=== PATIENT | male | born 1960 | race Caucasian/White ===

== ENCOUNTER 2018-08-22 01:46 | Emergency (ER) | payer OTHER ==
--- OUTSIDE RECORDS SUMMARY | 2018-08-22 01:48 | XMS REPORT | Clinical Summary ---
:1960 Author Organization [facility] Address [address] [place] [address] Care Team Providers Name Role Phone Unavailable Primary Care Provider Unavailable Allergies No Known Allergies Medications Medication Sig Dispensed Refills Start Date End Date Status lancets Misc Use three times 50 each 3 06/03/2016 Active weekly to check blood sugar. blood sugar 1 strip by 100 strip 3 06/03/2016 Active diagnostic (GLUCOSE Miscellaneous route 3 BLOOD) Strp (three) times a week. Active Problems Problem Noted Date Acute ischemic left MCA stroke 05/28/2016 Global aphasia 05/28/2016 Seizure 05/27/2016 Social History Tobacco Use Types Packs/Day Years Used Date Never Smoker Smokeless Tobacco: Never Used Alcohol Use Drinks/Week oz/Week Comments No Sex Assigned at Date Recorded Not on file Job Start Date Occupation Industry Not on file Not on file Not on file Travel History Travel Start Travel End No recent travel history available. Last Filed Vital Signs Not on file Plan of Treatment Not on file Results Not on fileafter 08/21/2017 Insurance Payer Benefit Plan / Group Subscriber ID Type Phone Address MEDICARE MEDICARE A B xxxxxxxxxxx Medicare Advance Directives For more information, please contact:[facility] [place] [address] [phone] Code Status Date Activated Date Inactivated Comments Full Code 06/03/2016 9:04 AM 06/03/2016 9:53 AM This code status was determined by: Other (please list) Brother Full Code 06/02/2016 2:35 PM 06/02/2016 3:02 PM This code status was determined by: Patient Full Code 05/27/2016 12:01 PM 06/02/2016 2:35 PM This code status was determined by: Patient
[2018-08-22 02:26] LABS: Absolute Lymphocytes (CBC) 2.6 K/uL (0.7-4.9); Absolute Monocytes 0.8 K/uL (0.1-1.3); Absolute Neutrophil 5.5 K/uL (1.8-8.0); Basophils % 0.6 % (0-1.3); Eosinophils % 0.9 % (0-4.4); Hematocrit 48.5 % (39.6-49.0); Lymphocytes % 28.5 % (15.3-44.8); MPV 8.7 fL (7.6-11.3); Monocytes % 8.5 % (3.3-12.3); RBC Red Blood Cell Count 5.46 M/uL (4.33-5.43)
[2018-08-22 03:11] LABS: Protime INR 1.01
[2018-08-22 03:12] LABS: BUN Blood Urea Nitrogen 12 mg/dL (7-18); Bicarbonate 29 mmol/L (21-32); Glucose Level 105 mg/dL (74-106); Potassium 3.6 mmol/L (3.5-5.1); Sodium Level 143 mmol/L (136-145)
[2018-08-22 03:21] LABS: Troponin (Emerg Dept Use Only) < 0.02 ng/mL (0.0-0.045)
[2018-08-22 05:04] LABS: Urine Blood 2+ (NEG); Urine Glucose NEGATIVE (NEG); Urine Protein NEGATIVE (NEG); Urine Specific Gravity 1.025 (1.005-1.030)
--- NOTE | 2018-08-22 05:24 | ER ---
Nurse's Notes [facility] Name: Fabien Armendariz Age: 57 yrs Sex: Male : 1960 Arrival Date: 08/22/2018 Time: 01:52 Bed 14 Private MD: Diagnosis: Cerebrovascular disorders in diseases classified elsewhere;CVA Presentation: 08/22 01:55 Presenting complaint: EMS states: Brother reports that patient is typically able to lp1 walk on his own, tonight at 1800, patient was having trouble walking and had trouble getting out of bed; Patient has become progressively weak to right arm and right leg since then; hx of CVA 2 years ago. Transition of care: patient was not received from another setting of care. An acute neurological deficit is present. The charge nurse has been notified. The patients blood glucose was checked before arriving to the hospital and was found to be normal. Onset of symptoms was August 21, 2018 at 18:00. Risk Assessment: Do you want to hurt yourself or someone else? Patient reports no desire to harm self or others. Initial Sepsis Screen: Does the patient meet any 2 criteria? No. Patient's initial sepsis screen is negative. Does the patient have a suspected source of infection? No. Patient's initial sepsis screen is negative. Care prior to arrival: Glucose check: 92. 01:55 Method Of Arrival: EMS: [facility] lp1 01:55 Acuity: LEIDA 2 lp1 Historical: - Allergies: 01:58 No Known Allergies; lp1 - Home Meds: 02:18 levetiracetam 750 mg oral tab 1 tab 2 times per day [Active]; metformin 1,000 mg Oral lp1 tab 1 tab 2 times per day [Active]; losartan-hydrochlorothiazide 100-12.5 mg oral tab 1 tab once daily [Active]; - PMHx: 02:18 "Mentally delayed"; Hypertension; Diabetes - NIDDM; lp1 - Social history:: Smoking status: unknown. - Ebola Screening: : No symptoms or risks identified at this time. Screenin:59 Fall Risk Total Seaman Fall Scale indicates High Risk Score (45 or more points). Fall lp1 prevention measures have been instituted. Side Rails Up X 2 Placed Close to Nursing Station Family Present and informed to notify staff if the need to leave the bedside As available patient and family educated on Fall Prevention Program and Strategies. 02:00 Abuse screen: Denies threats or abuse. Nutritional screening: No deficits noted. jb4 Tuberculosis screening: No symptoms or risk factors identified. Assessment: 01:59 VAN Scoring: Arm Drift: Flaccid/no antigravity lp1 02:05 The patient has not been NPO before screening. The patient is alert, and able to follow jb4 commands. The patient does not exhibit slurred or garbled speech. The patient is not exhibiting difficulty speaking. The patient is exhibiting difficulty understanding words. unable to assess speech or understanding of words due to mental disability. The patient is able to swallow own secretions with no drooling or need for suction. Patient tolerated one teaspoon of water. No drooling, immediate coughing, gurgling, or clearing of the throat was noted. The patient tolerated 90mL of water. No drooling, immediate coughing, gurgling, or clearing of the throat was noted. The patient passed the bedside swallow screening. Oral medications may be given as ordered. Contact Physician for further diet orders. Provider notified of bedside swallow screening results: Bora Howell MD. T-PA (Activase) Screening:. General: Appears uncomfortable, obese, Behavior is calm, cooperative. Pain: Denies pain. Neuro: Level of Consciousness is awake, alert, obeys commands, Oriented to person. Cardiovascular: Heart tones S1 S2 present Patient's skin is warm and dry. Respiratory: Airway is patent Respiratory effort is even, unlabored, Respiratory pattern is regular, symmetrical, Breath sounds are clear bilaterally. GI: No signs and/or symptoms were reported involving the gastrointestinal system. : No signs and/or symptoms were reported regarding the genitourinary system. EENT: No signs and/or symptoms were reported regarding the EENT system. Derm: Skin is intact, Skin is pink, warm \\T\\ dry. Musculoskeletal: Range of motion: limited in all extremities. 02:05 Reassessment: unable to ass best gaze, visual musa,sensory, best language, jb4 dysarthria, or extinction/inattention neglect due to mental disability. 03:00 Reassessment: No changes from previously documented assessment. Patient and/or family jb4 updated on plan of care and expected duration. Pain level reassessed. Family is at the bedside. Pt is awake and alert, respirations even and unlabored, oriented to self. 03:57 Reassessment: Patient and/or family updated on plan of care and expected duration. Pain jb4 level reassessed. Pt has improved movement of the right arm and left leg. Pt is awake and alert, respirations even and unlabored, oriented to self. 04:44 Reassessment: No changes from previously documented assessment. Patient and/or family jb4 updated on plan of care and expected duration. Pain level reassessed. Attempted to call report to [facility], instructed to wait for call back. Respirations even and unlabored, awake and alert, oriented to self. 05:43 Reassessment: No changes from previously documented assessment. Patient and/or family jb4 updated on plan of care and expected duration. Pain level reassessed. Pt family is leaving, pt is resting in bed. Pt is awake and alert, respirations even and unlabored. oriented to self. Report called to Patricio at [facility]. 06:53 Reassessment: Patient and/or family updated on plan of care and expected duration. Pain jb4 level reassessed. Pt is awake and alert. oriented to self. Pt vomited x1, given 4mg of zofran per providers orders. Being transferred out by EMS to [facility]. Vital Signs: 01:52 BP 163 / 95; Pulse 70; Resp 16; Temp 98; Pulse Ox 98% on R/A; Weight 108.86 kg; lp1 03:00 BP 150 / 102; Pulse 78; Resp 16; Pulse Ox 97% on R/A; jb4 04:00 BP 134 / 95; Pulse 82; Resp 16; Pulse Ox 98% on R/A; jb4 04:44 BP 146 / 89; Pulse 84; Resp 16; Pulse Ox 100% on R/A; jb4 05:43 BP 133 / 93; Pulse 75; Resp 16; Pulse Ox 99% on R/A; jb4 06:45 BP 163 / 109; Pulse 86; Resp 20; Pulse Ox 97% on R/A; jb4 NIH Stroke Scale Scores: 02:05 NIHSS Score: 11 jb4 ED Course: 01:52 Patient arrived in ED. bb 01:53 Bora Howell MD is Attending Physician. tw4 01:[address] via stretcher. lp1 01:57 Triage completed. lp1 01:58 Arm band placed on. lp1 02:00 Patient has correct armband on for positive identification. Bed in low position. Call jb4 light in reach. Side rails up X2. monitor worker on. Pulse ox on. NIBP on. 02:12 Inserted saline lock: 20 gauge in right wrist, using aseptic technique. Blood collected.lp1 02:20 CT Stroke Brain w/o Contrast In Process Unspecified. EDMS 02:26 X-ray completed. Portable x-ray completed in exam room. Patient tolerated procedure kw well. 02:28 Stroke CXR 1 View In Process Unspecified. EDMS 02:55 Saúl Nina, RN is Primary Nurse. jb4 06:45 No provider procedures requiring assistance completed. Patient transferred, IV remains jb4 in place. Administered Medications: 06:50 Drug: Zofran 4 mg Route: IVP; Site: right hand; jb4 07:14 Follow up: Response: No adverse reaction; Medication administered at discharge. jb4 Point of Care Testing: Blood Glucose: 01:52 Blood Glucose: 80 mg/dL; lp1 06:45 Blood Glucose: 112 mg/dL; jb4 Ranges: Outcome: 05:23 ER care complete, transfer ordered by . tw4 06:45 Transferred by ground EMS to [facility]. jb4 06:45 Condition: stable 06:45 Discharge instructions given to family, EMS, Instructed on the need for transfer, Demonstrated understanding of instructions. 07:02 Patient left the ED. jb4 NIH Stroke Scale - NIH Stroke Score Date: 08/22/2018 Time: 02:05 Total Score = 11 1a. Level of Consciousness (LOC) - 0(Alert) 1b. Level of Consciousness (LOC) (Year \\T\\ Age) - 1(One) 1c. LOC Commands (Open \\T\\ Closes Eyes/Cra) - 0(Both) 2. Best Gaze (Lateral Gaze Paresis) - 0(Normal) 3. Visual Field Loss - 0(No visual loss) 4. Facial Palsy - 1(Minor Paralysis) 5a. Left Arm: Motor (10-second hold) - 0(No drift) 5b. Right Arm: Motor (10-second hold) - 3(No effort against gravity) 6a. Left Leg: Motor (5-second hold - always test supine) - 3(No effort against gravity) 6b. Right Leg: Motor (5-second hold - always test supine) - 3(No effort against gravity) 7. Limb Ataxia (finger/nose \\T\\ heel/bailey - test with eyes open) - 0(Absent) 8. Sensory Loss (pinprick arms/legs/face) - 0(Normal) 9. Best Language: Aphasia (description/naming/reading) - 0(No aphasia) 10. Dysarthria (speech clarity - read or repeat words) - 0(Normal) 11. Extinction and Inattention (visual/tactile/auditory/spatial/personal) - 0(No abnormality) Initials: jb4 Addendum: 08/25/2018 07:59 Addendum: Culture Results: Positive urine culture. Phone call Attempt #1 ss notified and faxed culture report to [facility]. Signatures: Dispatcher [employer] EDMS Yessi Bolanos RN RN bb Sonja Johnston RN RN Tyra Foote Laura, RN RN lp1 Saúl Nina RN RN jb4 Bora Howell MD MD tw4 Corrections: (The following items were deleted from the chart) 08/22 06:58 03:57 Reassessment: Patient and/or family updated on plan of care and expected jb4 duration. Pain level reassessed. Patient is alert, oriented x 3, equal unlabored respirations, skin warm/dry/pink. Pt has improved movement of the right arm and left leg. jb4 06:58 03:00 Reassessment: No changes from previously documented assessment. Patient jb4 and/or family updated on plan of care and expected duration. Pain level reassessed. Patient is alert, oriented x 3, equal unlabored respirations, skin warm/dry/pink. Family is at the bedside. jb4 06:58 04:44 Reassessment: No changes from previously documented assessment. Patient jb4 and/or family updated on plan of care and expected duration. Pain level reassessed. Patient is alert, oriented x 3, equal unlabored respirations, skin warm/dry/pink. Attempted to call report to [facility], instructed to wait for call back. jb4 06:58 05:43 Reassessment: No changes from previously documented assessment. Patient jb4 and/or family updated on plan of care and expected duration. Pain level reassessed. Patient is alert, oriented x 3, equal unlabored respirations, skin warm/dry/pink. Pt family is leaving, pt is resting in bed. jb4 07: 05:43 Reassessment: No changes from previously documented assessment. Patient jb4 and/or family updated on plan of care and expected duration. Pain level reassessed. Pt family is leaving, pt is resting in bed. Pt is awake and alert, respirations even and unlabored. oriented to self [facility] : 06:53 Reassessment: Patient and/or family updated on plan of care and expected jb4 duration. Pain level reassessed. Pt is awake and alert. oriented to self. Pt vomited x1, given 4mg of zofran per providers orders. Being transferred out by EMS to [place] [address]
--- NOTE | 2018-08-22 05:24 | EDPHYS ---
Physician Documentation [facility] Name: Fabien Armendariz Age: 57 yrs Sex: Male : 1960 Arrival Date: 08/22/2018 Time: 01:52 Bed 14 Private MD: ED Physician Bora Howell HPI: 08/22 02:20 This 57 yrs old Male presents to ER via EMS with complaints of S/S of tw4 Possible Stroke. 02:20 Onset: The symptoms/episode began/occurred yesterday. Duration: This was a single tw4 incident. Context: the episode(s) was witnessed, by no one. The symptoms are alleviated by nothing. The symptoms are aggravated by nothing. Severity of symptoms: At their worst the symptoms were moderate in the emergency department the symptoms are unchanged. The patient has not experienced similar symptoms in the past. 04:26 The patient's problem is reported as weakness, in the right upper extremity, in the tw4 right lower extremity, in the right side of face. Associated signs and symptoms: The patient has no apparent associated signs or symptoms. Patient's baseline: Neuro: alert and fully oriented, Motor: right-sided weakness, Ambulation: walks without assistance. Historical: - Allergies: 01:58 No Known Allergies; lp1 - Home Meds: 02:18 levetiracetam 750 mg oral tab 1 tab 2 times per day [Active]; metformin 1,000 mg Oral lp1 tab 1 tab 2 times per day [Active]; losartan-hydrochlorothiazide 100-12.5 mg oral tab 1 tab once daily [Active]; - PMHx: 02:18 "Mentally delayed"; Hypertension; Diabetes - NIDDM; lp1 - Social history:: Smoking status: unknown. - Ebola Screening: : No symptoms or risks identified at this time. ROS: 02:20 Constitutional: Negative for fever, chills, and weight loss, Eyes: Negative for injury, tw4 pain, redness, and discharge, Cardiovascular: Negative for chest pain, palpitations, and edema, Respiratory: Negative for shortness of breath, cough, wheezing, and pleuritic chest pain, Abdomen/GI: Negative for abdominal pain, nausea, vomiting, diarrhea, and constipation, Back: Negative for injury and pain, MS/Extremity: Negative for injury and deformity, Skin: Negative for injury, rash, and discoloration. 02:20 Neuro: Positive for weakness. Exam: 02:20 Constitutional: This is a well developed, well nourished patient who is awake, alert, tw4 and in no acute distress. Head/Face: Normocephalic, atraumatic. Chest/axilla: Normal chest wall appearance and motion. Nontender with no deformity. No lesions are appreciated. Cardiovascular: Regular rate and rhythm with a normal S1 and S2. No gallops, murmurs, or rubs. Normal PMI, no JVD. No pulse deficits. Respiratory: Lungs have equal breath sounds bilaterally, clear to auscultation and percussion. No rales, rhonchi or wheezes noted. No increased work of breathing, no retractions or nasal flaring. Abdomen/GI: Soft, non-tender, with normal bowel sounds. No distension or tympany. No guarding or rebound. No evidence of tenderness throughout. Back: No spinal tenderness. No costovertebral tenderness. Full range of motion. MS/ Extremity: Pulses equal, no cyanosis. Neurovascular intact. Full, normal range of motion. 02:20 Neuro: Orientation: to person, Mentation: lucid, able to follow commands, Memory: is normal, Motor: the patient is contracted, Sensation: is normal. 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 tw4 04:27 Differential diagnosis: CVA, TIA. Data reviewed: vital signs, nurses notes. Data interpreted: Pulse oximetry: is not applicable for this patient encounter. Counseling: I had a detailed discussion with the patient and/or guardian regarding: the historical points, exam findings, and any diagnostic results supporting the discharge/admit diagnosis, lab results. 08/22 01:58 Order name: Troponin (emerg Dept Use Only); Complete Time: 04:16 08/22 01:58 Order name: Basic Metabolic Panel; Complete Time: 03:36 08/22 03:37 Interpretation: Normal except: CL 108; GFR 73. 08/22 01:58 Order name: CBC with Diff; Complete Time: 03:36 08/22 03:36 Interpretation: Normal except: RBC 5.46; MCV 88.9. 08/22 01:58 Order name: Protime (+inr); Complete Time: 03:37 08/22 03:37 Interpretation: Within normal limits: PT 11.9. 08/22 01:58 Order name: Ptt, Activated; Complete Time: 03:37 08/22 03:37 Interpretation: Within normal limits: PTT 36.2. 08/22 04:51 Order name: Urine Culture 08/22 01:58 Order name: Call for Old EKG; Complete Time: 02:42 08/22 01:58 Order name: Call for Old Records; Complete Time: 02:42 08/22 01:58 Order name: CT Stroke Brain w/o Contrast 08/22 01:58 Order name: Stroke CXR 1 View 08/22 01:58 Order name: EKG; Complete Time: 01:58 08/22 04:51 Order name: Urine Microscopic Only 08/22 04:53 Order name: Urine Dipstick--Ancillary (enter results) 2 08/22 01:58 Order name: Accucheck; Complete Time: 02:58 08/22 01:58 Order name: Cardiac monitoring; Complete Time: 02:58 08/22 01:58 Order name: EKG - Nurse/Tech; Complete Time: 02:58 08/22 01:58 Order name: IV Saline Lock; Complete Time: 02:58 08/22 01:58 Order name: Labs collected and sent; Complete Time: 02:58 08/22 01:58 Order name: NPO; Complete Time: 02:58 08/22 01:58 Order name: O2 Per Protocol; Complete Time: 02:58 08/22 01:58 Order name: O2 Sat Monitoring; Complete Time: 02:58 08/22 01:58 Order name: Stroke Swallow Screen; Complete Time: 02:59 08/22 04:19 Order name: Urine Dipstick-Ancillary (obtain specimen); Complete Time: 04:44 bb EC:02 Rate is 98 beats/min. Rhythm is regular, 1st Degree Block. QRS [place] is Normal. [place] tw4 interval is normal. QRS interval is normal. QT interval is normal. No Q waves. T waves are Normal. No ST changes noted. Clinical impression: 1st degree heart block. Interpreted by me. Reviewed by me. Administered Medications: 06:50 Drug: Zofran 4 mg Route: IVP; Site: right hand; [facility] 07:14 Follow up: Response: No adverse reaction; Medication administered at discharge. jb4 Point of Care Testing: Blood Glucose: 01:52 Blood Glucose: 80 mg/dL; lp1 06:45 Blood Glucose: 112 mg/dL; jb4 Ranges: Critical Glucose Levels:Adult <50 mg/dl or >400 mg/dl <40 mg/dl or >180 mg/dl Disposition: 08/22/18 05:[address] [facility]. Diagnosis are Cerebrovascular disorders in diseases classified elsewhere, CVA. - Reason for transfer: Higher level of care. - Accepting physician is Dr Guo. - Condition is Stable. - Problem is new. - Symptoms have improved. NIH Stroke Scale - NIH Stroke Score Date: 08/22/2018 Time: 02:05 Total Score = 11 1a. Level of Consciousness (LOC) - 0(Alert) 1b. Level of Consciousness (LOC) (Year \\T\\ Age) - 1(One) 1c. LOC Commands (Open \\T\\ Closes Eyes/Teller) - 0(Both) 2. Best Gaze (Lateral Gaze Paresis) - 0(Normal) 3. Visual Field Loss - 0(No visual loss) 4. Facial Palsy - 1(Minor Paralysis) 5a. Left Arm: Motor (10-second hold) - 0(No drift) 5b. Right Arm: Motor (10-second hold) - 3(No effort against gravity) 6a. Left Leg: Motor (5-second hold - always test supine) - 3(No effort against gravity) 6b. Right Leg: Motor (5-second hold - always test supine) - 3(No effort against gravity) 7. Limb Ataxia (finger/nose \\T\\ heel/bailey - test with eyes open) - 0(Absent) 8. Sensory Loss (pinprick arms/legs/face) - 0(Normal) 9. Best Language: Aphasia (description/naming/reading) - 0(No aphasia) 10. Dysarthria (speech clarity - read or repeat words) - 0(Normal) 11. Extinction and Inattention (visual/tactile/auditory/spatial/personal) - 0(No abnormality) Initials: [facility] Signatures: Dispatcher [employer] EDYessi Cain, RN RN bb Tamiko Castelan RN RN lp1 Saúl Nina RN RN jb4 Bora Howell MD MD 4 Kendal Angel 2 Corrections: (The following items were deleted from the chart) 07:02 05:23 08/22/2018 05:23 Transfer ordered to [address] Diagnosis is Cerebrovascular disorders in diseases classified elsewhere; CVA. Reason for transfer: Higher level of care. Accepting physician is Dr Guo. Condition is Stable. Problem is new. Symptoms have improved. tw4
[2018-08-22 05:31] LABS: Urine Bacteria LOADED /HPF (NONE SEEN); Urine Culture Reflex Order NOT NEEDED; Urine Sperm PRESENT (NONE SEEN)
[2018-08-22] MEDS ORDERED: ONDANSETRON 4 MG/2 ML VIAL ONE (06:49)
--- NOTE | 2018-08-22 07:41 | EKG ---
Test Date: 2018-08-22 Test Time: 02:11:11 Saddle Lining Stitcher: MARLEY MEASUREMENT RESULTS: Intervals: Rate: 68 MN: 214 QRSD: 92 QT: 384 QTc: 408 [place]: P: 57 MN: 214 QRS: 29 T: 35 INTERPRETIVE STATEMENTS: Sinus rhythm with 1st degree AV block Otherwise normal ECG Compared to ECG 05/27/2016 07:25:21 First degree AV block now present Electronically Signed On 08-22-18 07:40:25 CDT by Christiano Guo
--- NOTE | 2018-08-22 08:36 | RAD REPORT ---
EXAM DESCRIPTION: Benjie Single View08/22/2018 2:28 am CLINICAL HISTORY: Hypertension COMPARISON: 2016 FINDINGS: The lungs appear clear of acute infiltrate. The heart is mildly enlarged IMPRESSION: No acute abnormalities displayed
--- NOTE | 2018-08-22 11:01 | RAD REPORT ---
EXAM DESCRIPTION: CT - Ct Stroke Brain Wo Cont - 08/22/2018 4:04 am CLINICAL HISTORY: The patient is 25 years old and is Male; EPIGASTRIC PAIN TECHNIQUE: Axial computed tomography images of the abdomen and pelvis with intravenous contrast. S agittal and coronal reformatted images were created and reviewed. This CT exam was performed using one or more of the following dose reduction techniques: automated exposure control, adjustment of t he mA and/or kV according to patient size, and/or use of iterative reconstruction technique. COMPARISON: None. FINDINGS: LUNG BASES: Unremarkable. No mass. No consolidation. ABDOMEN: LIVER: Unremarkable. No mass. GALLBLADDER AND BILE DUCTS: Unremarkable. No calcified stones. No ductal dilation. PANCREAS: Unremarkable. No mass. No ductal dilation. SPLEEN: Unremarkable. No splenomegaly. ADRENALS: Unremarkable. No mass. KIDNEYS AND URETERS: Unremarkable. No solid mass. No hydronephrosis. STOMACH AND BOWEL: Unremarkable. No obstruction. No mucosal thickening. PELVIS: APPENDIX: The appendix is seen and is within normal limits BLADDER: Unremarkable. No mass. REPRODUCTIVE: Unremarkable as visualized. ABDOMEN and PELVIS: INTRAPERITONEAL SPACE: Unremarkable. No free air. No significant fluid collection. BONES/JOINTS: No acute fracture. No dislocation. SOFT TISSUES: Unremarkable. VASCULATURE: Unremarkable. No abdominal aortic aneurysm. LYMPH NODES: Unremarkable. No enlarged lymph nodes. IMPRESSION: No acute abdominal or pelvic abnormality. Electronically signed by: Everette Long DO 08/22/2018 2:14 AM CDT \ Due to temporary technical issues with the PACS/Fluency reporting system, reports are being signed by the in house radiologist as a courtesy to ensure prompt reporting. The interpreting radiologist is f gosialy responsible for the content of the report.
== END 2018-08-22 07:02 | disposition short-term general hospital (02) ==
LOC: ER 01:46
DX: I63.9 Cerebral infarction, unspecified (principal); I67.9 Cerebrovascular disease, unspecified; I10 Essential (primary) hypertension; R29.711 NIHSS score 11; E11.9 Type 2 diabetes mellitus without complications
CPT/HCPCS: 93005; 87088; 85025; 87086; 80048; 36415; 85610; 82962 ×2; 85730; 87077; 87186; 84484; 70450; 71045; 96374; 99285; J2405; 81003; 81015